=== PATIENT | male | born 2005 | race Caucasian/White ===

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

== ENCOUNTER 2024-08-06 21:31 | Emergency (ER) | payer OTHER, MEDICAID, SELFPAY ==
[2024-08-06] VITALS (7 sets, daily range): BP systolic 122–132; BP diastolic 62–78; PULSE 88–128; RESP 17–26; TEMP 36.8–37.1; O2SAT 96–100; BMI 19.3
--- NOTE | 2024-08-06 22:13 | ED.GENADULT ---
HPI - General Adult General Chief complaint: Altered Mental Status Stated complaint: poss overdose Time Seen by Provider: 08/06/24 21:46 Source: family Mode of arrival: Ambulatory Limitations: altered mental status History of Present Illness HPI narrative: Patient was a 18-year-old male he was brought in by his father. He received a phone call from the patient's roommate stating that the patient was acting erratically. Was confused. Had vomited. He was concerned that the patient has ingested some intoxicating substances. Patient is obviously intoxicated. Initially did not provide any information. Patient is obviously vomited at some point prior to coming to the ER. Related Data Home Medications Medication Instructions Recorded Confirmed No Known Home Medications 03/18/22 03/18/22 Allergies Allergy/AdvReac Type Severity Reaction Status Date / Time No Known Drug Allergies Allergy Verified 08/06/24 21:34 Review of Systems Review of Systems Narrative: Very limited given the patient's intoxication upon arrival Patient History Medical History In-toeing of both feet Social History Smoking Status: Never smoker additional social history: LAHW mom, sister 11 (criminal justice department chair with dad); father smokes Smoking Status: Never smoker alcohol intake frequency: other Substance Use Type: marijuana Exam Initial Vital Signs Initial Vital Signs: Vital Signs Temperature 98.8 F 08/06/24 21:34 Pulse Rate 124 H 08/06/24 21:34 Respiratory Rate 17 08/06/24 21:34 Blood Pressure 132/62 08/06/24 21:34 Pulse Oximetry 100 08/06/24 21:34 Oxygen Delivery Method Room Air 08/06/24 21:34 Const General: comfortable Resp Effort & Inspection: normal respiratory effort Auscultation: clear to auscultation bilaterally Cardio Rate: regular rate Rhythm: regular rhythm Course Vital Signs Vital signs: Vital Signs - 8 hr 08/06/24 21:34 08/06/24 21:48 08/06/24 21:50 Temperature 98.8 F Pulse Rate 124 H 128 H 121 H Respiratory Rate 17 26 H Blood Pressure 132/62 Pulse Oximetry 100 99 Oxygen Delivery Method Room Air 08/06/24 21:50 08/06/24 22:00 08/06/24 22:30 Temperature Pulse Rate 122 H 109 H Respiratory Rate 19 23 Blood Pressure 122/67 Pulse Oximetry 96 100 Oxygen Delivery Method Room Air 08/06/24 23:00 08/06/24 23:33 Temperature 98.2 F Pulse Rate 111 H 88 Respiratory Rate 19 19 Blood Pressure 123/78 Pulse Oximetry 100 98 Oxygen Delivery Method Room Air Medical Decision Making MDM Narrative Medical decision making narrative: Patient is obviously intoxicated. Low suspicion for alcohol I suspect another illicit substance. He did at 1 point expressed to nursing staff that he would taken acid although this could not be completely confirmed. Patient has been stable after a period of observation. There was no signs of trauma. Will discharge home under care of his father who is comfortable taking him home. Discharge Plan Departure Patient Disposition: Home Clinical Impression: Intoxication by drug Instructions: Substance Use Disorder Activity Restrictions/Additional Instructions: No driving for the next 24 hours or in the future if he per takes in intoxicating substances. Recommend that he contact his primary provider for a follow-up. Prescriptions: No Action No Known Home Medications Referrals: Tennille Delgado DO [Primary Care Provider] - Stand Alone Forms: Patient Portal/API
== END 2024-08-06 23:33 | disposition home or self-care (01) ==
PROVIDERS: Emergency Provider Emergency Medicine; PCP Pediatrics
DX: F10.129 Alcohol abuse with intoxication, unspecified (principal); R11.10 Vomiting, unspecified
CPT/HCPCS: 99281

== ENCOUNTER 2025-08-31 18:46 | Emergency (ER) | payer OTHER, SELFPAY ==
[2025-08-31 18:49] VITALS: BP 135/82; PULSE 90; RESP 18; TEMP 37.3; O2SAT 98; BMI 22.9
--- NOTE | 2025-08-31 19:02 | EKG_ITS ---
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
[2025-08-31 19:16] LABS: Add Manual Diff / Slide Review NO; Hematocrit 46.5 % (41-53); Hemoglobin 16.0 g/dL (13.5-17.5); Lymphocytes Absolute Auto 1400 /uL (1100-4500); Mean Corpuscular HGB Conc 34.4 % (30-36); Mean Corpuscular Hemoglobin 29.6 PG (26-34); Mean Corpuscular Volume 86.1 fL (80-100); Platelet Count 197 X10^3/uL (150-400)
[2025-08-31 19:23] LABS: Creatine Kinase 145 U/L (55-170)
[2025-08-31 19:24] LABS: Alanine Aminotransferase 35 IU/L (<50); Albumin 5.4 g/dL (3.5-5.0); Albumin Globulin Ratio 1.5 (1.0-2.8); Alkaline Phosphatase 69 U/L (38-126); Blood Urea Nitrogen 21 mg/dL (9-20); Calcium 9.9 mg/dL (8.4-10.2); Carbon Dioxide 25 mmol/L (22-32); Chloride 103 mmol/L (98-107); Estimated Glomerular Filt Rate > 60 mL/min (>60); Globulin 3.6 g/dL (1.7-4.1); Glucose 102 mg/dL (70-99); HEMOLYSIS 20 (0-50); Lipase 58 U/L (23-300); Potassium 4.0 mmol/L (3.4-5.1); Sodium 141 mmol/L (137-145); Total Protein 9.0 g/dL (6.3-8.2)
[2025-08-31] MEDS: MAG HYDROX/ALUMINUM/SIMETH SUS 30 ML, LIDOCAINE VISCOUS 2% 15 ML PO (19:25)
[2025-08-31] MEDS: ONDANSETRON 4 MG/2 ML INJ IV (19:25)
[2025-08-31 19:36] LABS: Troponin I < 0.012 ng/mL (0.01-0.034)
--- NOTE | 2025-08-31 19:50 | ED_ITS ---
HPI - Abdominal Pain General Chief Complaint: Abdominal Pain Stated Complaint: Abd pain, chest pn, diarrhea Time Seen by Provider: 08/31/25 19:48 Source: patient Mode of arrival: Ambulatory History of Present Illness HPI narrative: 19-year-old male with node on with a history presents with epigastric abdominal pain that has been worsening in the past hour. He does admit to some nausea but no vomiting, a little bit of diarrhea. No fever no chills no other symptoms. He had a small bout of left-sided little bit of chest pain as well. That has subsided. Related Data Previous Rx's ?Medication ?Instructions ?Recorded omeprazole 20 mg capsule,delayed 20 mg PO DAILY #14 ca ps 08/31/25 release Allergies Allergy/AdvReac Type Severity Reaction Status Date / Time No Known Drug Allergies Allergy Verified 08/06/24 21:34 Review of Systems Review of Systems ROS Unobtainable: All systems reviewed & are unremarkable except as noted in HPI and below Patient History Medical History In-toeing of both feet Social History additional social history: LAHW mom, sister 11 (synthetic department supervisor with dad); father smokes alcohol intake frequency: other Exam Narrative Exam Narrative: General: Patient appears to be in no acute distress, acting appropriately Head: normocephalic, atraumatic, HEENT: Pupils equal round reactive, eyes tracking well, neck supple, no JVD Heart: regular rate and rhythm, no murmurs, rubs, or gallops heard Lungs: clear to auscultation, no adventitious sounds Abdomen: soft , mildly tender to palpation in epigastric region, nondistended, positive bowel sounds Neurological: no focal neurological signs, moving all extremities well, alert and oriented x3, Psych: good judgment ,good insight, mood is normal. Initial Vital Signs Initial Vital Signs: Vital Signs Temperature 99.1 F 08/31/25 18:49 Pulse Rate 90 08/31/25 18:49 Respiratory Rate 18 08/31/25 18:49 Blood Pressure 135/82 08/31/25 18:49 Pulse Oximetry 98 08/31/25 18:49 Oxygen Delivery Method Room Air 08/31/25 18:49 Course Orders Ordered: Discontinued Medications Al Hydrox/Mg Hydrox/Simethicone 30 ml/ Lidocaine HCl 15 ml 0 ml PO NOW ONE Stop: 08/31/25 19:12 Last Admin: 08/31/25 19:25 Dose: 45 ml Documented By: ANUSHA Ondansetron HCl (Ondansetron 4 Mg/2 Ml Inj) 4 mg IV NOW PRN PRN Reason: Nausea And Vomiting Last Admin: 08/31/25 19:25 Dose: 4 mg Documented By: ANUSHA Ondansetron HCl (Ondansetron 4 Mg Odt) 4 mg PO NOW PRN PRN Reason: Nausea And Vomiting Vital Signs Vital signs: Vital Signs - 8 hr 08/31/25 22:38 Temperature 98 F Pulse Rate 86 Respiratory Rate 16 Blood Pressure 138/76 Pulse Oximetry 98 Oxygen Delivery Method Room Air MDM - Abdominal Pain Lab Data 08/31/25 19:00 08/31/25 19:00 Labs: Lab Results 08/31/25 Range/Units 19:00 WBC 11.2 H (4.5-11.0) X10^3/uL RBC 5.40 (4.5-5.9) X10^6/uL Hgb 16.0 (13.5-17.5) g/dL Hct 46.5 (41-53) % MCV 86.1 (80-100) fL MCH 29.6 (26-34) PG MCHC 34.4 (30-36) % RDW 13.7 (11.6-14.8) % Plt Count 197 (150-400) X10^3/uL Neut % (Auto) 77.9 H (50-75) % Lymph % (Auto) 12.4 L (25-40) % [place] % (Auto) 9.0 (3-14) % Eos % (Auto) 0.4 L (2-4) % Baso % (Auto) 0.3 (0-2) % Neut # (Auto) 8700 H (6365-5463) /uL Lymph # (Auto) 1400 (5658-6522) /uL [place] # (Auto) 1000 H (0-900) /uL Eos # (Auto) 0 (0-450) /uL Baso # (Auto) 0 (0-100) /uL Sodium 141 (137-145) mmol/L Potassium 4.0 (3.4-5.1) mmol/L Chloride 103 (98-107) mmol/L Carbon Dioxide 25 (22-32) mmol/L BUN 21 H (9-20) mg/dL Creatinine 0.82 (0.66-1.25) mg/dL Estimated GFR > 60 (>60) mL/min BUN/Creatinine Ratio 25.6 H (6-22) Glucose 102 H (70-99) mg/dL Calcium 9.9 (8.4-10.2) mg/dL Total Bilirubin 1.2 (0.2-1.3) mg/dL AST 46 (17-59) IU/L ALT 35 (<50) IU/L Alkaline Phosphatase 69 (38-126) U/L Total Creatine Kinase 145 (55-170) U/L Troponin I < 0.012 (0.01-0.034) ng/mL Total Protein 9.0 H (6.3-8.2) g/dL Albumin 5.4 H (3.5-5.0) g/dL Globulin 3.6 (1.7-4.1) g/dL Albumin/Globulin Ratio 1.5 (1.0-2.8) Lipase 58 (23-300) U/L Point of care testing: Urine Dip Bedside Urine Glucose Negative Bedside Urine Bilirubin - Negative Bedside Urine Ketone +/- 5 Urine Specific [place] 1.025 Bedside Urine Occult Blood - Negative Bedside Urine pH 6.0 Bedside Urine Protein - Negative Bedside Urine Urobilinogen - Negative Bedside Urine Nitrite - Negative Bedside Urine Leukocytes - Negative Esterase MDM Narrative Medical decision making narrative: 19-year-old male with some epigastric abdominal pain that was worsening. His pain significantly improved with the GI cocktail. Most likely deal of active GERD symptoms. We will do a trial of omeprazole for the patient and talked about a GERD diet. Patient offered CT abdomen and case but he refused since symptoms improved. Follow up if symptoms worsen. Discharge Plan Departure Patient Disposition: Home Clinical Impression: Abdominal pain, acute, epigastric, GERD without esophagitis Instructions: DI for Gastroesophageal Reflux Disease (GERD), GERD Diet Activity Restrictions/Additional Instructions: Follow GERD diet as instructed. Try to avoid spicy or greasy or acidic foods. Take meds as prescribed omeprazole daily for the next 2 weeks. Follow up if abdominal pain worsens. Prescriptions: New omeprazole 20 mg capsule,delayed release(DR/EC) 20 mg PO DAILY Qty: 14 0RF Referrals: Tennille Delgado DO [Primary Care Provider, Pediatrics] Stand Alone Forms: Patient Portal/API
[2025-08-31 22:38] VITALS: BP 138/76; PULSE 86; RESP 16; TEMP 36.6; O2SAT 98
== END 2025-08-31 22:40 | disposition home or self-care (01) ==
PROVIDERS: Emergency Provider Family Medicine; PCP Pediatrics
DX: R10.13 Epigastric pain (principal); K21.9 Gastro-esophageal reflux disease without esophagitis
CPT/HCPCS: 36415; 80053; 81003; 82550; 83690; 84484; 85025; 93005; 93010; 96374; 99284; J2405